=== PATIENT | male | born 1990 | race Caucasian/White ===

== ENCOUNTER → 2019-06-25 10:17 | Outpatient (CLI) | payer OTHER, SELFPAY ==
--- NOTE | 2019-06-25 10:20 | DI.RAD.S_ITS ---
PROCEDURE: XR FOOT RT MIN 3V INDICATIONS: r foot pain TECHNIQUE: 3 views of the foot were acquired. COMPARISON: None. FINDINGS: Bones: No fractures or dislocations. No suspicious bony lesions. Unfused accessory navicular Soft tissues: No tibiotalar joint effusion. Achilles tendon appears normal. IMPRESSION: Overall, grossly unremarkable examination. If the patient's pain or other symptoms persist, consider further evaluation with MRI Dictated by: Chava Short M.D. on 06/25/2019 at 11:04 Approved by: Chava Short M.D. on 06/25/2019 at 11:07
== END ==
PROVIDERS: Visit Provider Physician Assistant
DX: M79.671 Pain in right foot (principal)
CPT/HCPCS: 73630